=== PATIENT | male | born 1970 | race Two or more races ===

== ENCOUNTER 2018-12-13 20:57 | Emergency (ER) | payer SELFPAY ==
[~2018-12-13] VITALS: Ht 170.2 cm; Wt 93.0 kg
--- NOTE | 2018-12-13 21:24 | NUR ---
DR. WANG AT BEDSIDE FOR MSE.
[2018-12-13] MEDS ORDERED: PHENYTOIN SODIUM EXTENDED 100 MG CAPSULE.SA PO ONE ×2 (21:30→21:34)
[2018-12-13] MEDS ORDERED: ARIPIPRAZOLE 5 MG TABLET PO ONE (21:30)
[2018-12-13] MEDS ORDERED: HYDROCODONE/APAP 10-325 MG TABLET PO ONE (21:30)
[2018-12-13] MEDS ORDERED: ONDANSETRON ODT 4 MG TAB.RAPDIS SL ONE (21:30)
[2018-12-13] MEDS ORDERED: HYDROCODONE/APAP 10-325 MG TABLET ONE (21:34)
[2018-12-13] MEDS ORDERED: ONDANSETRON ODT 4 MG TAB.RAPDIS ONE (21:34)
[2018-12-13] MEDS ORDERED: ARIPIPRAZOLE 10 MG TABLET ONE (21:45)
[2018-12-13 22:04] VITALS: BP 105/68
--- NOTE | 2018-12-13 22:04 | NUR ---
Patient discharged to home in stable conditon. Written and verbal after care instructions given. Patient verbalizes understanding of instructions. PATIENT LEFT WITH STABLE GAIT.
== END 2018-12-13 22:05 | disposition home or self-care (01) ==
LOC: ER 20:59
DX: G89.29 Other chronic pain (principal); M54.2 Cervicalgia; G40.909 Epilepsy, unspecified, not intractable, without status epilepticus; F15.10 Other stimulant abuse, uncomplicated; Z76.0 Encounter for issue of repeat prescription; Z88.5 Allergy status to narcotic agent
CPT/HCPCS: A4663; Q0162

== ENCOUNTER 2018-12-19 16:29 | Emergency (ER) | payer SELFPAY ==
[~2018-12-19] VITALS: Ht 170.2 cm; Wt 88.5 kg
[2018-12-19] MEDS ORDERED: ONDANSETRON 4 MG/2 ML VIAL ONE (16:46)
--- NOTE | 2018-12-19 16:50 | NUR ---
Patient discharged to home in stable conditon. Written and verbal after care instructions given. Patient verbalizes understanding of instructions.pt walks in steady gait. pt deneis any sob, dizziness or cp or any other complain at this point other than the chronic neck pain
== END 2018-12-19 16:50 | disposition home or self-care (01) ==
LOC: ER 16:29
DX: R56.9 Unspecified convulsions (principal); F15.10 Other stimulant abuse, uncomplicated; Z76.0 Encounter for issue of repeat prescription; Z88.5 Allergy status to narcotic agent
CPT/HCPCS: 99283; J2405; A4663

== ENCOUNTER 2020-01-15 20:14 | Emergency (ER) | payer MEDICAID ==
[~2020-01-15] VITALS: Ht 170.2 cm; Wt 90.7 kg
--- NOTE | 2020-01-15 20:57 | NUR ---
Dr. Ross at bedside for MSE.
[2020-01-15] MEDS ORDERED: PHENYTOIN SODIUM EXTENDED 100 MG CAPSULE.SA PO ONE ×2 (21:00→21:05)
--- NOTE | 2020-01-15 21:15 | NUR ---
Patient discharged to home in stable condition. Written and verbal after care instructions given. Patient verbalizes understanding of instructions. Stressed follow up or return to ER for worsening s/s. Patient ambulated out of ER with steady gait, no acute signs of distress, VSS, all belongings taken.
[2020-01-15 21:16] VITALS: BP 117/86
== END 2020-01-15 21:17 | disposition home or self-care (01) ==
LOC: ER 20:14
DX: Z76.0 Encounter for issue of repeat prescription (principal); G40.909 Epilepsy, unspecified, not intractable, without status epilepticus; Z91.14 Patient's other noncompliance with medication regimen; F20.9 Schizophrenia, unspecified; F19.10 Other psychoactive substance abuse, uncomplicated
CPT/HCPCS: A4663